=== PATIENT | male | born 1970 | race Two or more races ===

== ENCOUNTER 2018-06-12 15:49 | Inpatient (IN) | payer OTHER ==
[~2018-06-12] VITALS: Ht 172.7 cm; Wt 60.8 kg
--- NOTE | 2018-06-12 15:52 | NUR ---
PT KAMRAN TO ER BED 04. C/O DIFFUSE ABDOMINAL PAIN W/ N/V/D FOR A FEW DAYS NOW. 8/10 PAIN AT THIS TIME BUT STATES DOES NOT WANT ANY NARCOTIC MEDICATION. ALSO NEAR SYNCOPE WHILE UP THE ATTIC. PLACED ON MONITOR. AWAITING MD MCFARLAND.
--- NOTE | 2018-06-12 16:06 | NUR ---
ERMD AT BEDSIDE FOR EVAL.
--- NOTE | 2018-06-12 16:13 | NUR ---
COMMUNITY RELATIONS ADVISOR AT BEDSIDE FOR BLOOD DRAW.
--- NOTE | 2018-06-12 16:13 | NUR ---
Delmar escamilla in [facility] - 06/12/18 at 1621 by MICHEL GREASE MAKER HEAD AT BEDSIDE FOR TRACEEAL.
[2018-06-12] MEDS ORDERED: MAG HYDROX/AL HYDROX/SIMETH 30 ML UDC ONE (16:15)
[2018-06-12] MEDS ORDERED: ONDANSETRON HCL/PF 4 MG/2 ML VIAL ONE (16:15)
[2018-06-12 16:19] LABS: BASOPHILS # (AUTO) 0.1 /CMM (0.0-0.2); BASOPHILS % (AUTO) 0.8 % (0.0-2.0); EOSINOPHILS % (AUTO) 3.2 % (0.0-6.0); HEMATOCRIT 40 % (39-51); HEMOGLOBIN 13.4 g/dL (13.5-17.5); LYMPHOCYTES # (AUTO) 2.1 /CMM (0.8-4.8); LYMPHOCYTES % (AUTO) 20.6 % (20.0-44.0); MEAN CORPUSCULAR HEMOGLOBIN 30 PG (26.0-33.0); MEAN CORPUSCULAR HGB CONC 34 g/dl (31.0-36.0); MEAN CORPUSCULAR VOLUME 89 fL (80-96); MONOCYTES # (AUTO) 0.6 /CMM (0.1-1.30); MONOCYTES % (AUTO) 5.3 % (2.0-12.0); NEUTROPHILS # (AUTO) 7.3 /CMM (1.8-8.9); NEUTROPHILS % (AUTO) 70.1 % (43.0-81.0); PLATELET COUNT (AUTO) 330 /CMM (150-450); RDW COEFFICIENT OF VARIATION 13.1 (11.5-15.0); RED BLOOD CELL COUNT(AUTO) 4.49 MIL/uL (4.5-6.0); WHITE BLOOD COUNT (AUTO) 10.4 K/uL (4.3-11.0)
--- NOTE | 2018-06-12 16:21 | NUR ---
PT UNABLE TO PROVIDE URINE SAMPLE AT THIS TIME.
[2018-06-12] MEDS ORDERED: IV NS 0.9% 1,000 ML IV ONE (16:30)
[2018-06-12] MEDS ORDERED: MAG HYDROX/AL HYDROX/SIMETH 30 ML UDC PO ONE (16:30)
[2018-06-12] MEDS ORDERED: ONDANSETRON HCL/PF - ER 4 MG/2 ML VIAL IV ONE (16:30)
[2018-06-12 16:36] LABS: ALBUMIN 3.3 g/dL (3.4-5.0); BILIRUBIN,DIRECT 0.1 mg/dL (0.0-0.2); BILIRUBIN,TOTAL 0.5 mg/dL (0.2-1.0); CALCIUM, SERUM 8.6 mg/dL (8.5-10.1); CREATININE 0.8 mg/dL (0.6-1.3); POTASSIUM 3.8 mmol/L (3.5-5.1); TOTAL PROTEIN, SERUM 6.6 g/dL (6.4-8.2)
[2018-06-12 16:45] LABS: APPEARANCE,URINE Slightly Cloudy (CLEAR); BILIRUBIN,URINE Negative (NEGATIVE); BLOOD, URINE Negative Ery/uL (NEGATIVE); COLOR,URINE Dark (YELLOW); KETONES,URINE Trace (NEGATIVE); LEUKOCYTE ESTERASE ,URINE Trace (NEGATIVE); NITRITE, URINE Negative (NEGATIVE); PROTEIN,URINE Negative (NEGATIVE); UGLUCOSE Negative (NEGATIVE)
[2018-06-12 17:28] LABS: BACTERIA,URINE Moderate /HPF (None Seen); RBC,URINE 0-2 /HPF (0-2); SQUAMOUS EPITHELIAL CELL,UR Few /HPF (None Seen)
[2018-06-12 17:29] LABS: CALCIUM OXALATE CRYSTALS,UR Few /HPF (None Seen)
[2018-06-12] MEDS ORDERED: KETOROLAC TROMETHAMINE INJ 30 MG/ML VIAL IV ONE (17:30)
[2018-06-12] MEDS ORDERED: KETOROLAC TROMETHAMINE INJ 30 MG/ML VIAL ONE (17:34)
--- NOTE | 2018-06-12 19:11 | NUR ---
CALLED [facility] CIRCULAR SAW FILER WAS PAGED.
--- NOTE | 2018-06-12 19:12 | NUR ---
RE-CALLED THE NURSING PARA MACHINE OPERATOR AND ASKED FOR A BED. NONE GIVEN AT THIS TIME.
--- NOTE | 2018-06-12 20:01 | NUR ---
REPORT GIVEN TO ADDIE GONZALEZ. PT AWAITING TRANSFER TO FLOOR.
[2018-06-12 20:10] VITALS: BP 117/81
--- NOTE | 2018-06-12 20:10 | NUR ---
MS/RN NOTES NEW ADMITTED PATIENT ARRIVED FROM ER ON A GURNEY, WITH GRIMACE AND GUARDING, APPEARS WEAK, REPORTED PAIN OF 7/10. RESPIRATIONS EVEN AND UNLABORED. SKIN WARM TO TOUCH, BED WEIGHT AT 134 LBS. SKIN WARM TO TOUCH, NO PEN WOUND, VITAL SIGNS CHECK B/P AT 117/81, PULSE 62, R- 18M, TEMPERATURE AT 98.4 O2 SAT IN ROOM AIR AT 96%. PATIENT COMPLIANT AND AGREED WITH CARE.BELONGINGS CHECK WITH SWISSS KNIFE TO BE KEPT IN SAFE. DX OF PANCREATITIS, ABLE TO AMBULATE, ALERT, ORIENTED X3, perrla , BOWEL SOUNDS HEARD IN ALL 3 QUADRANTS, LUNGS CLEAR, ABDOMEN SOME TENDERNESS. NO EDEMA. ROOM ORIENTATION PROVIDED, DISCUSSED PLAN OF CARE. CALL LIGHTS WITHIN REACH, BED IN LOCK POSITION, WILL MONITOR. AWAITING FOR MD ORDER, MD HARDY ADMITING
[2018-06-12 20:54] VITALS: BP 117/81
[2018-06-12] MEDS ORDERED: ONDANSETRON HCL/PF 4 MG/2 ML VIAL IVP PRN (21:00)
[2018-06-12] MEDS ORDERED: Z GUARD REMEDY 2 OZ OINT TP PRN (21:00)
[2018-06-12] MEDS ORDERED: MORPHINE SULFATE INJ 2 MG/ML DISP.SYRIN IV PRN (21:00)
[2018-06-12] MEDS ORDERED: ACETAMINOPHEN 325 MG TABLET PO PRN (21:00)
[2018-06-12] MEDS: PANTOPRAZOLE 40 MG VIAL IV SCH (21:43)
[2018-06-12] MEDS: IV NS 0.9% 1,000 ML IV PRN (21:43)
[2018-06-12] MEDS: ENOXAPARIN SODIUM 40 MG/0.4 ML DISP.SYRIN SQ SCH (21:44)
--- NOTE | 2018-06-12 23:10 | NUR ---
MS/RN NOTES MD MADE ROUNDS, PATIENT REPORTED NOT ABLE TO GIVE LIST OF MEDICATIONS HE IS TAKING, ASKED TO LET MD KNOW HE TAKES SEROQUEL 100MG DAILY, DEPAKOTE 10MG AND COGENTIN THAT HE DO NOT KNOW THE EXACT DOSE.
[2018-06-12] MEDS ORDERED: QUET100T PO (23:14)
--- NOTE | 2018-06-13 04:56 | NUR ---
MS/RN NOTES PATIENT PERSONAL KNIFE IN THE SAFE/MS2 CABINET
[2018-06-13 06:19] LABS: BASOPHILS # (AUTO) 0.1 /CMM (0.0-0.2); BASOPHILS % (AUTO) 0.6 % (0.0-2.0); EOSINOPHILS % (AUTO) 3.4 % (0.0-6.0); HEMATOCRIT 40 % (39-51); HEMOGLOBIN 13.5 g/dL (13.5-17.5); LYMPHOCYTES # (AUTO) 1.9 /CMM (0.8-4.8); LYMPHOCYTES % (AUTO) 20.9 % (20.0-44.0); MEAN CORPUSCULAR HEMOGLOBIN 31 PG (26.0-33.0); MEAN CORPUSCULAR HGB CONC 34 g/dl (31.0-36.0); MEAN CORPUSCULAR VOLUME 92 fL (80-96); MONOCYTES # (AUTO) 0.7 /CMM (0.1-1.30); MONOCYTES % (AUTO) 7.2 % (2.0-12.0); NEUTROPHILS # (AUTO) 6.2 /CMM (1.8-8.9); NEUTROPHILS % (AUTO) 67.9 % (43.0-81.0); PLATELET COUNT (AUTO) 289 /CMM (150-450); RDW COEFFICIENT OF VARIATION 13.7 (11.5-15.0); RED BLOOD CELL COUNT(AUTO) 4.36 MIL/uL (4.5-6.0); WHITE BLOOD COUNT (AUTO) 9.2 K/uL (4.3-11.0)
--- NOTE | 2018-06-13 06:25 | NUR ---
MS/RN NOTES PATIENT REQUESTED EX DANA HIS AUTHORIZED SEASONAL DELIVERY DRIVER , IN ALL HIS HEALTH CARE NEEDS, PLS CONTACT ISIDRA ROWE NEED INFORMATION
[2018-06-13 06:41] LABS: CREATININE 0.7 mg/dL (0.6-1.3); PHOSPHORUS 2.8 mg/dL (2.5-4.9); POTASSIUM 3.9 mmol/L (3.5-5.1)
--- NOTE | 2018-06-13 06:52 | NUR ---
204-1 ms/rn notes PATIENT ABLE TO SLEEP DURING THE NIGHT, PAIN TOLERABLE, REFUSED TO TAKE NARCOTICS, COMPLIANT WITH MD ORDER FOR NPO STATUS, VERBALIZED UNDERSTANDIMG, RESPIRATIONS EVEN AND UNLABORED, WILL MONITOR. BED IN LOCK POSIITON, CALL LIGHTS WITHIN REACH. WILL ENDORSE TO AM RN FOR MANDY.
--- NOTE | 2018-06-13 07:25 | NUR ---
RN OPENING NOTES PT ;EE[ EASILY AROUSABLE AND VERBALLY RESPONSIVE, PAIN MANAGEMENT CONTINUED, WILL ADMINISTER PAIN MEDICATION PRN ORDERED. RESPIRATIONS EVEN AND UNLABORED, IV ACCESS TO LAC 18 G PATENT AND INTACT NO REDNESS OR INFILTRATION NOTED IV FLUIDS ORDERED, TOLERATED WELL. PT ORIENTED TO ROOM AND UNIT WITH NOTED VERBAL UNDERSTANDING. PT TO BE NPO UNTIL FURTHER ORDERS. SAFETY MEASURES IN PLACE, CALL LIGHT WITHIN EASY REACH WILL CONTINUE TO MONITOR
[2018-06-13 08:00] VITALS: BP 122/83
[2018-06-13] MEDS: IV NS 0.9% 1,000 ML IV PRN (13:56)
[2018-06-13] MEDS: NICOTINE PATCH (21MG) 21 MG PATCH.TD24 TD SCH (14:40)
[2018-06-13 16:00] VITALS: BP 125/75
--- NOTE | 2018-06-13 18:46 | NUR ---
RN OPENING NOTES PT AWAKE ALERT AND VERBALLY RESPONSIVE, DENIES ANY PAIN OR DISCOMFORT AT THIS TIME. RESPIRATIONS EVEN AND UNLABORED, IV ACCESS TO LAC 18 G PATENT AND INTACT NO REDNESS OR INFILTRATION NOTED IV FLUIDS ORDERED, TOLERATED WELL. PT ORIENTED TO ROOM AND UNIT WITH NOTED VERBAL UNDERSTANDING. PT ON CLEARED LIQUID DIET TOLERATED WELL, UNTIL FURTHER ORDERS. SAFETY MEASURES IN PLACE, CALL LIGHT WITHIN EASY REACH WILL CONTINUE TO MONITOR AND WILL ENDORSE TO NEXT SHIFT FOR CONTINUITY OF CARE Addendum: 06/13/18 at 1849 by MORGAN HINES RN RN CLOSING NOTES PT AWAKE ALERT AND VERBALLY RESPONSIVE, DENIES ANY PAIN OR DISCOMFORT AT THIS TIME. RESPIRATIONS EVEN AND UNLABORED, IV ACCESS TO LAC 18 G PATENT AND INTACT NO REDNESS OR INFILTRATION NOTED IV FLUIDS ORDERED, TOLERATED WELL. PT ORIENTED TO ROOM AND UNIT WITH NOTED VERBAL UNDERSTANDING. PT ON CLEARED LIQUID DIET TOLERATED WELL, UNTIL FURTHER ORDERS. SAFETY MEASURES IN PLACE, CALL LIGHT WITHIN EASY REACH WILL CONTINUE TO MONITOR AND WILL ENDORSE TO NEXT SHIFT FOR CONTINUITY OF CARE
[2018-06-13 20:00] VITALS: BP 133/83
--- NOTE | 2018-06-13 20:00 | NUR ---
MS RN NOTES RECEIVED ON BED A/O X4,BREATHING REGULAR,O2 SAT 97% ON ROOM AIR,PRESENT IVF INFUSING WELL ON RFA VIA IV PUMP,SITE PATENT.NOTED ON AND OFF DRY COUGH AND ASKING FOR COUGH MEDICINE.WILL NOTIFY ENGINEER STATION MAINLINE ASSESSMENT EXPERT FOR ORDERS.CALL LIGHT IN REACH,NEEDS ANTICIPATED.
--- NOTE | 2018-06-13 21:00 | NUR ---
MS RN NOTES CHEST X-RAY DONE BY ORAL AND MAXILLOFACIAL SURGERY ORDERED FOR COUGH.
[2018-06-13] MEDS: ENOXAPARIN SODIUM 40 MG/0.4 ML DISP.SYRIN SQ SCH (21:13)
[2018-06-13] MEDS: PANTOPRAZOLE 40 MG VIAL IV SCH (21:13)
[2018-06-13] MEDS ORDERED: BENZONATATE 100 MG CAPSULE PO PRN (23:30)
[2018-06-13] MEDS ORDERED: BENZONATATE 100 MG CAPSULE PO ONE (23:55)
--- NOTE | 2018-06-13 23:59 | NUR ---
MS RN NOTES C/O DRY COUGH,TESSALON PERLE 100MG PO GIVEN ORDERED.
[2018-06-14] MEDS: IV NS 0.9% 1,000 ML IV PRN (01:18)
--- NOTE | 2018-06-14 07:25 | NUR ---
MS RN OPENING NOTES PT RECEIVED AWAKE IN BED IN NO ACUTE SIGNS OF DISTRESS. A/O X4. VERBALLY RESPONSIVE, DENIES ANY PAIN OR DISCOMFORT AT THIS TIME. ON ROOM AIR, RESPIRATIONS EVEN AND UNLABORED. IV ACCESS ON RFA G# 20 PATENT AND INTACT, IVF OF NS @ 100 ML/HR RUNNING ORDERED, NO REDNESS OR INFILTRATION NOTED. SAFETY MEASURES IN PLACE. BED IN LOW/LOCKED POSITION. CALL LIGHT WITHIN EASY REACH. WILL CONTINUE TO MONITOR.
--- NOTE | 2018-06-14 07:26 | NUR ---
MS RN NOTES NO SIGNIFICANT CHANGE IN STATUS,DENIES PAIN,IVF INFUSING,IN NO ACUTE DISTRESS.ENDORSED TO CAPO GONZALEZ FOR MANDY.
[2018-06-14 08:00] VITALS: BP 124/80
[2018-06-14] MEDS: NICOTINE PATCH (21MG) 21 MG PATCH.TD24 TD SCH (08:34)
--- NOTE | 2018-06-14 14:09 | NUR ---
RN NOTES PATIENT TOLERATED FULL LIQUIDS AT BREAKFAST AND SOFT DIET AT LUNCHTIME. ATE WELL WITH NO COMPLAINTS OF ABDOMINAL PAIN, N & V. PATIENT FOR DISCHARGE THIS AFTERNOON. WILL CONTINUE TO MONITOR.
--- NOTE | 2018-06-14 15:24 | NUR ---
RN DISCHARGED NOTES PATIENT DISCHARGED HOME IN STABLE CONDITION. A/O X 4. VERBALLY RESPONSIVE WITH NO C/O PAIN, N & V SINCE START OF SHIFT. AMBULATORY. ALL NEEDS ATTENDED WELL. V/S TAKEN AND STABLE. SKIN IS INTACT. IV ACCESS REMOVED WITH NO BLEEDING NOTED, PRESSURE GAUZE APPLIED. ALL BELONGINGS CHECKED, COUNTED AND SIGNED FORM. SMOKING CESSATION EDUCATION GIVEN. DISCHARGE INSTRUCTIONS EXPLAINED/ HEALTH TEACHINGS GIVEN AND VERBALIZED UNDERSTANDING. PATIENT SAID, HE DOESN'T NEED ANY PRESCRIPTION MEDICATION BECAUSE HE HAS ALL THE MEDICATION HE NEEDS AT HOME. PATIENT LEFT UNIT @ 1520 AMBULATORY ACCOMPANIED BY FRIEND JERRY GARCIA MD AND COUNSELOR/ART THERAPIST AWARE OF DISCHARGE.
== END 2018-06-14 15:20 | disposition home or self-care (01) | DRG 282 ==
LOC: ER 15:52 → EDBD 15:52 → ER 20:24 → MEDSG2 20:26
PROVIDERS: ADMIT Nurse Practitioner Acute Care; ATTEND Nurse Practitioner Acute Care
DX: K85.90 Acute pancreatitis without necrosis or infection, unspecified (principal); E44.1 Mild protein-calorie malnutrition; K74.60 Unspecified cirrhosis of liver; F17.210 Nicotine dependence, cigarettes, uncomplicated; E88.09 Other disorders of plasma-protein metabolism, not elsewhere classified; Z68.20 Body mass index [BMI] 20.0-20.9, adult; Z86.19 Personal history of other infectious and parasitic diseases; Z71.6 Tobacco abuse counseling
CPT/HCPCS: 36415; 71045-TC; 76705-TC; 80048-TC; 80061-TC; 80076-TC; 81000-TC; 82550-TC; 83690-TC; 83735-TC; 84100-TC; 85025-TC; 87081-TC; 87086-TC; A4606; C9113; J1650; J1885; J2270; J2405; J7030; Z7610

== ENCOUNTER 2018-07-11 20:15 | Emergency (ER) | payer OTHER ==
[~2018-07-11] VITALS: Ht 170.2 cm; Wt 65.8 kg
[~2018-07-11 20:15] MED LIST: QUET100T PO
[2018-07-11] MEDS ORDERED: IV NS 0.9% 1,000 ML BAG IV ONE (20:30)
[2018-07-11] MEDS ORDERED: MORPHINE SULFATE INJ 2 MG/ML DISP.SYRIN IV ONE (20:30)
[2018-07-11] MEDS ORDERED: ONDANSETRON HCL/PF 4 MG/2 ML VIAL IVP ONE (20:30)
[2018-07-11] MEDS ORDERED: ONDANSETRON HCL/PF 4 MG/2 ML VIAL ONE (20:42)
[2018-07-11] MEDS ORDERED: MORPHINE SULFATE INJ 4 MG/ML DISP.SYRIN ONE (20:42)
[2018-07-11 20:45] LABS: BASOPHILS # (AUTO) 0.1 /CMM (0.0-0.2); BASOPHILS % (AUTO) 0.7 % (0.0-2.0); EOSINOPHILS % (AUTO) 2.8 % (0.0-6.0); HEMATOCRIT 42 % (39-51); HEMOGLOBIN 13.6 g/dL (13.5-17.5); LYMPHOCYTES # (AUTO) 3.2 /CMM (0.8-4.8); LYMPHOCYTES % (AUTO) 35.4 % (20.0-44.0); MEAN CORPUSCULAR HEMOGLOBIN 30 PG (26.0-33.0); MEAN CORPUSCULAR HGB CONC 33 g/dl (31.0-36.0); MEAN CORPUSCULAR VOLUME 90 fL (80-96); MONOCYTES # (AUTO) 0.6 /CMM (0.1-1.30); MONOCYTES % (AUTO) 6.6 % (2.0-12.0); NEUTROPHILS # (AUTO) 4.7 /CMM (1.8-8.9); NEUTROPHILS % (AUTO) 54.5 % (43.0-81.0); PLATELET COUNT (AUTO) 326 /CMM (150-450); RDW COEFFICIENT OF VARIATION 12.9 (11.5-15.0); RED BLOOD CELL COUNT(AUTO) 4.63 MIL/uL (4.5-6.0); WHITE BLOOD COUNT (AUTO) 8.9 K/uL (4.3-11.0)
[2018-07-11 20:47] LABS: APPEARANCE,URINE Clear (CLEAR); BILIRUBIN,URINE Negative (NEGATIVE); BLOOD, URINE Negative Ery/uL (NEGATIVE); COLOR,URINE Yellow (YELLOW); KETONES,URINE Trace (NEGATIVE); LEUKOCYTE ESTERASE ,URINE Negative (NEGATIVE); NITRITE, URINE Negative (NEGATIVE); PROTEIN,URINE Negative (NEGATIVE); UGLUCOSE Negative (NEGATIVE); UROBILINOGEN,URINE 0.2 EU/dL (0.2)
[2018-07-11 20:58] LABS: CALCIUM, SERUM 8.8 mg/dL (8.5-10.1); POTASSIUM 3.5 mmol/L (3.5-5.1)
--- NOTE | 2018-07-11 21:00 | NUR ---
"ABD PAIN X4 DAYS; HX OF PANCREATITIS". PT AAOX3, VSS. DENIES CP, SOB, DIZZINESS @ THIS TIME. PT ALSO C/O N/V. PT SEEN & EVAL'D BY DR. BARCLAY.
[2018-07-11 21:10] LABS: ALBUMIN 3.6 g/dL (3.4-5.0); BILIRUBIN,DIRECT 0.1 mg/dL (0.0-0.2); BILIRUBIN,TOTAL 0.3 mg/dL (0.2-1.0)
[2018-07-11] MEDS ORDERED: KETOROLAC TROMETHAMINE INJ 30 MG/ML VIAL IV ONE (21:30)
[2018-07-11] MEDS ORDERED: ACETAMINOPHEN 325 MG TABLET PO ONE (21:30)
[2018-07-11] MEDS ORDERED: ACETAMINOPHEN ES 500 MG TABLET ONE (21:40)
[2018-07-11] MEDS ORDERED: KETOROLAC TROMETHAMINE INJ 30 MG/ML VIAL ONE (21:40)
--- NOTE | 2018-07-11 22:41 | NUR ---
Patient discharged to home in stable condition. Written and verbal after care instructions given. Patient verbalizes understanding of instruction.
[2018-07-11 22:42] VITALS: BP 130/82
== END 2018-07-11 22:43 | disposition home or self-care (01) ==
LOC: ER 20:17
DX: R10.12 Left upper quadrant pain (principal); B19.20 Unspecified viral hepatitis C without hepatic coma; R11.10 Vomiting, unspecified; K74.60 Unspecified cirrhosis of liver; Z90.89 Acquired absence of other organs; K85.90 Acute pancreatitis without necrosis or infection, unspecified
CPT/HCPCS: 36415; 71045; 80048; 80076; 81001; 83690; 85025; 93005; 96361; 96374; 96375; 99285; A4606; J1885; J2405; J7030; Z7610; 81000-TC; J2270

== ENCOUNTER 2018-12-09 20:14 | Emergency (ER) | payer MEDICAID, OTHER ==
[~2018-12-09] VITALS: Ht 170.2 cm; Wt 74.8 kg
--- NOTE | 2018-12-09 20:20 | NUR ---
PT BIBSELF C/O URINARY RETENTION X 4 DAYS. PT AOX4. NAD NOTED. RESP EVEN AND UNLABORED. PT ON MONITOR IN BED 11. WILL CONTINUE TO MONITOR.
[2018-12-09] MEDS ORDERED: TAMSULOSIN 0.4 MG CAP.SR.24H PO ONE (21:30)
[2018-12-09] MEDS ORDERED: TAMSULOSIN 0.4 MG CAP.SR.24H ONE (21:44)
[2018-12-09] MEDS ORDERED: LIDOCAINE 2% JEL UROJET 10 ML MM ONE ×2 (22:10→22:30)
[2018-12-09 22:35] VITALS: BP 122/84
[2018-12-09 22:39] LABS: APPEARANCE,URINE Cloudy (CLEAR); BILIRUBIN,URINE Negative (NEGATIVE); BLOOD, URINE Moderate Ery/uL (NEGATIVE); COLOR,URINE Yellow (YELLOW); KETONES,URINE Negative (NEGATIVE); LEUKOCYTE ESTERASE ,URINE Large (NEGATIVE); NITRITE, URINE Negative (NEGATIVE); PROTEIN,URINE 100 mg/dl (NEGATIVE); UGLUCOSE Negative (NEGATIVE); UROBILINOGEN,URINE 0.2 EU/dL (0.2)
[2018-12-09 22:44] LABS: BACTERIA,URINE 2+ /HPF (None Seen); SQUAMOUS EPITHELIAL CELL,UR Few /HPF (None Seen); WBC,URINE 81-100 /HPF (0-3)
[2018-12-09] MEDS ORDERED: CIPROFLOXACIN HCL 500 MG TABLET PO ONE (23:00)
[2018-12-09] MEDS ORDERED: CIPROFLOXACIN HCL 500 MG TABLET ONE (23:40)
--- NOTE | 2018-12-09 23:42 | NUR ---
Patient discharged to home in stable condition. Written and verbal after care instructions given. Patient verbalizes understanding of instruction. PT AMBULATORY WITH STEADY GAIT.
== END 2018-12-09 23:44 | disposition home or self-care (01) ==
LOC: ER 20:17
DX: R33.9 Retention of urine, unspecified (principal); Z86.19 Personal history of other infectious and parasitic diseases; Z87.19 Personal history of other diseases of the digestive system; Z90.89 Acquired absence of other organs; Z79.899 Other long term (current) drug therapy
CPT/HCPCS: 81000-TC; 87086-TC; J3490

== ENCOUNTER 2018-12-11 02:24 | Emergency (ER) | payer MEDICAID ==
[~2018-12-11] VITALS: Ht 172.7 cm; Wt 61.2 kg
[2018-12-11 02:53] VITALS: BP 128/87
--- NOTE | 2018-12-11 03:03 | NUR ---
Pt SANJUANITA FROM HOME TO REMOVE LAL CATHETER, WHICH WAS INSERTED HERE AT [facility] ER. PER Pt STATEMENT WAS UNABLE TO MAKE APPOINTMENT WITH UROLOGIST, AND IS LEAVING THE STATE THIS MONDAY WHICH IS WHY HE CAME TO THE ER TO GET THE F/C REMOVED.
--- NOTE | 2018-12-11 03:05 | NUR ---
Pt IS VERBAL, ABLE TO MAKE NEEDS KNOWN. NO S/S OF ACUTE DISTRESS OR SOB NOTED. Pt WAITING COMFORTABLY IN BED.
--- NOTE | 2018-12-11 04:00 | NUR ---
LAL CATHETER REMOVED AT BEDSIDE.
--- NOTE | 2018-12-11 04:15 | NUR ---
Patient discharged to home in stable condition. Written and verbal after care instructions given. Patient verbalizes understanding of instruction. Patient left facility on foot with steady gait. No s/s of acute distress or sob noted. vs stable. no meds given. no IV access on pt.
== END 2018-12-11 04:17 | disposition home or self-care (01) ==
LOC: ER 02:24
DX: Z46.6 Encounter for fitting and adjustment of urinary device (principal); Z86.19 Personal history of other infectious and parasitic diseases
CPT/HCPCS: 99281; A4606; Z7610; Z7502

== ENCOUNTER 2020-04-29 22:30 | Emergency (ER) | payer MEDICAID ==
[~2020-04-29] VITALS: Ht 172.7 cm; Wt 59.0 kg
[2020-04-29 22:39] VITALS: BP 120/76
--- NOTE | 2020-04-29 22:40 | NUR ---
PT BIBSELF C/O SOB X1 DAY. PT AAOX4. RESPIRATIONS EVEN AND UNLABORED. O2 SAT 100% ROOM AIR. NO ACUTE DISTRESS NOTED AT THIS TIME. AMBULATORY TO ER BED
--- NOTE | 2020-04-29 22:43 | NUR ---
Patient eloped from facility. ER MD notified.
== END 2020-04-30 00:37 | disposition left against medical advice (07) ==
LOC: ER 22:30
DX: R06.02 Shortness of breath (principal)

== ENCOUNTER 2020-07-13 00:40 | Emergency (ER) | payer MEDICAID ==
[~2020-07-13] VITALS: Ht 172.7 cm; Wt 59.0 kg
--- NOTE | 2020-07-13 00:50 | NUR ---
BIBS FOR C/O L SISDED NON RADIATING CP 06/22 STARTED ABOUT "6-7 HRS AGO" , +NAUSEA AND DIZZINESS. - SOB,. PT WAS PLACED ON A MONITOR . VSS. PT REPORTED HX OF "BLOOD CLOTH" BUT NOT ROZ BLOOD THINER CURRENTLY. WILL CONT TO MONITOR ,
[2020-07-13] MEDS ORDERED: ONDANSETRON HCL/PF 4 MG/2 ML VIAL IVP ONE (01:00)
[2020-07-13 01:06] LABS: BASOPHILS % (AUTO) 0.6 % (0.0-2.0); EOSINOPHILS % (AUTO) 2.4 % (0.0-6.0); HEMATOCRIT 42 % (39-51); LYMPHOCYTES # (AUTO) 2.3 /CMM (0.8-4.8); LYMPHOCYTES % (AUTO) 33.2 % (20.0-44.0); MEAN CORPUSCULAR HGB CONC 33 g/dl (31.0-36.0); MEAN CORPUSCULAR VOLUME 91 fL (80-96); MONOCYTES # (AUTO) 0.5 /CMM (0.1-1.30); MONOCYTES % (AUTO) 7.4 % (2.0-12.0); NEUTROPHILS # (AUTO) 3.9 /CMM (1.8-8.9); NEUTROPHILS % (AUTO) 56.4 % (43.0-81.0); PLATELET COUNT (AUTO) 364 /CMM (150-450); RED BLOOD CELL COUNT(AUTO) 4.65 MIL/uL (4.5-6.0); WHITE BLOOD COUNT (AUTO) 6.9 K/uL (4.3-11.0)
[2020-07-13] MEDS ORDERED: ONDANSETRON HCL/PF 4 MG/2 ML VIAL ONE (01:07)
[2020-07-13 01:14] LABS: CALCIUM, SERUM 8.8 mg/dL (8.5-10.1); CARBON DIOXIDE 29 mmol/L (21-32); CHLORIDE 102 mmol/L (98-107); CREATININE 0.9 mg/dL (0.6-1.3); GLUCOSE 102 mg/dL (74-106); POTASSIUM 3.7 mmol/L (3.5-5.1); SODIUM SERUM 139 mmol/L (136-145); UREA NITROGEN, BLOOD 9 mg/dL (7-18)
--- NOTE | 2020-07-13 01:26 | NUR ---
CALLED [facility] FOR CTA
[2020-07-13] MEDS ORDERED: IV NS 0.9% 250 ML IV ONE (01:27)
[2020-07-13] MEDS ORDERED: IOHEXOL-350 100 ML VIAL IV ONE (01:27)
[2020-07-13] MEDS ORDERED: RIVAROXABAN 15 MG TABLET PO STA (02:33)
--- NOTE | 2020-07-13 02:35 | NUR ---
DR JEAN AT BED SIDE
--- NOTE | 2020-07-13 02:55 | NUR ---
IV removed. Catheter intact and site benign. Pressure and 4x4 applied to site. No bleeding noted.
--- NOTE | 2020-07-13 02:57 | NUR ---
CALLED INFRASTRUCTURE MANAGER FOR [employer] WHICH IS NOT AVAILABLE AT THIS TIME. DR JEAN MADE AWARE . D/C'D THE ORDER. PT WAS INSTRUCTED TO FILL THE PRESCRIPTION GIVEN TO HIME BY DR JEAN UPON D/C AND STARTE TAKING THE MEDICATION JUSTEN ORDERED. PT MEDICALLY STABLE FOR D/C. Patient discharged to home in stable condition. Rx and Written and verbal after care instructions given. Patient verbalizes understanding of instruction.
[2020-07-13 03:00] VITALS: BP 120/81
[2020-07-13] MEDS ORDERED: RIVAROXABAN 15 MG TABLET PO SCH (17:00)
== END 2020-07-13 03:01 | disposition home or self-care (01) ==
LOC: ER 00:43
DX: R07.89 Other chest pain (principal); Z86.711 Personal history of pulmonary embolism; Z86.19 Personal history of other infectious and parasitic diseases; Z79.899 Other long term (current) drug therapy
CPT/HCPCS: 36415; 71275; 80048; 84484; 85025; 85730; 93005 ×2; 96374; 99285; J2405; J7050; Q9967